=== PATIENT | female | born 1995 | race Two or more races ===

== ENCOUNTER → 2017-12-13 | Outpatient (CLI) | payer OTHER ==
[~2017-12-13] MED LIST: PRENATABS RX T1 EACH PO
== END | disposition home or self-care (01) ==
LOC: NST 18:43
DX: Z34.03 Encounter for supervision of normal first pregnancy, third trimester (principal)

== ENCOUNTER 2017-12-14 21:00 | Inpatient (IN) | payer OTHER ==
[~2017-12-14] VITALS: Ht 165.1 cm; Wt 107.0 kg
[2017-12-14] MEDS ORDERED: PRENATABS RX T1 EACH PO (22:03)
== END 2017-12-16 16:58 | disposition home or self-care (01) | DRG 775 ==
LOC: LDR 21:00 → OB/GYN 12-15 01:16
PROC: 4A1HXCZ Monitoring of Products of Conception, Cardiac Rate, External Approach (ICD-10-PCS; 2017-12-14)
PROC: 0KQM0ZZ Repair Perineum Muscle, Open Approach (ICD-10-PCS; principal; 2017-12-15)
PROC: 10E0XZZ Delivery of Products of Conception, External Approach (ICD-10-PCS; 2017-12-15)
PROC: 4A033R1 Measurement of Arterial Saturation, Peripheral, Percutaneous Approach (ICD-10-PCS; 2017-12-15)
DX: O70.1 Second degree perineal laceration during delivery (principal); Z37.0 Single live birth; Z3A.39 39 weeks gestation of pregnancy